=== PATIENT | female | born 1990 | race African-American/Black ===

== ENCOUNTER 2017-11-24 09:04 | Emergency (ER) | payer MEDICAID, OTHER ==
[~2017-11-24] VITALS: Ht 162.6 cm; Wt 64.0 kg
[2017-11-24 09:29] VITALS: BP 131/72
== END 2017-11-24 10:16 | disposition left against medical advice (07) ==
LOC: ER 09:04
DX: R11.2 Nausea with vomiting, unspecified (principal); R42 Dizziness and giddiness; R10.13 Epigastric pain; R55 Syncope and collapse; J45.909 Unspecified asthma, uncomplicated; Z53.21 Procedure and treatment not carried out due to patient leaving prior to being seen by health care provider